=== PATIENT | male | born 1945 | race Caucasian/White ===

== ENCOUNTER 2019-06-20 08:00 | Outpatient (RCR) | payer SELFPAY | END 2019-09-29 16:05 | disposition home or self-care (01) | LOC: CHSCPRIII 08:00 | PROVIDERS: PCP Internal Medicine; Visit Provider Specialist | DX: Z95.1 Presence of aortocoronary bypass graft (principal) | CPT/HCPCS: 99199 ==

== ENCOUNTER 2021-01-30 08:48 | Emergency (ER) | payer MEDICARE, SELFPAY ==
--- NOTE | ~2021-01-30 | CT_ITS ---
EXAMINATION: CT abdomen pelvis w con EXAM DATE: 01/30/2021 10:22 INDICATION: Mid to low abdominal pain nausea and bloating fullness. TECHNIQUE: Spiral CT of the abdomen and pelvis was performed following intravenous injection of 100 m L Omnipaque 350. Axial, coronal and sagittal images of the abdomen and pelvis were reviewed. The do se-length product (DLP) for this examination was 488.98 mGy-cm. The exposure was tailored according to patient size (auto mA exposure control), and iterative reconstruction (ASIR) was used as additiona l dose reduction technique. Comparison is made to prior examination from 04/26/2019. FINDINGS: There is a 3.5 mm stone in the right ureterovesicular junction, with mild right hydroureter onephrosis and a delayed nephrogram. There is moderate right perinephric fat stranding. Several addit ional punctate right calyceal stones. There is a hypodensity in the liver dome measuring 1.8 cm consistent with a cyst. The spleen, pancre as, and adrenal glands are unremarkable. Small calcified cholelithiasis identified. Unremarkable bi liary system. The prostate is unremarkable. Small left inguinal fat-containing hernia. The bladder is unremarkable. There is no retroperitoneal or pelvic lymphadenopathy. There is moderate scatter ed arteriosclerotic disease. The appendix is normal. There is moderate sigmoid colonic diverticulosis. There is no adjacent infla mmatory change to suggest diverticulitis. The stomach and small bowel are unremarkable. There is ex pected amount of colonic stool. No free intraperitoneal gas. The heart is normal in size. There are no pericardial or pleural effusions. The lung bases are unremarkable. There are no osteoblastic or osteolytic lesions identified. IMPRESSION: 1. Right UVJ 3.5 mm stone, mild hydroureteronephrosis. 2. Punctate right nephrolithiasis. 3. Sigmoid diverticulosis. Reviewed, dictated and finalized at location A.
[2021-01-30 08:48] VITALS: BP 151/77; PULSE 71; RESP 16; TEMP 36.7; O2SAT 100
[2021-01-30] MEDS: MORPHINE SULFATE (*CRX) 4 MG/ML INJ IV PUSH (09:07)
--- NOTE | 2021-01-30 09:07 | ECG_ITS ---
Measurements Intervals [place] Rate: 72 P: 72 ID: 180 QRS: 51 QRSD: 102 T: 4 QT: 399 QTc: 439 Interpretive Statements SINUS RHYTHM DELAYED PRECORDIAL R/S TRANSITION INFERIOR INFARCT, AGE INDETERMINATE BASELINE ARTIFACT- II, III, AVR, AVF, V6 ABNORMAL ECG Electronically Signed On 01-30-2021 10:03:35 CDT by Aniceto Dinero D.O.
[2021-01-30] MEDS: ONDANSETRON INJ 4 MG/2 ML VIAL IV PUSH (09:13)
[2021-01-30] MEDS: SODIUM CHLORIDE 0.9% IV 1,000 ML 999 ML IV CONT (09:13)
[2021-01-30 09:17] LABS: Basophils Absolute Auto 0.03 K/mm3 (0.00-0.10); Basophils Percent Auto 0.3 % (0.0-1.0); Hematocrit 44.1 % (37.0-46.0); Hemoglobin 14.7 g/dL (12.4-15.3); Immature Granulocyte Absolute 0.03 K/mm3 (0.00-0.00); Immature Granulocyte Percent A 0.3 % (0.0-0.0); Lymphocytes Absolute Auto 0.96 K/mm3 (1.10-4.50); Mean Corpuscular HGB Conc 33.3 g/dL (32.0-36.0); Mean Corpuscular Hemoglobin 27.9 pg (27.0-31.0); Mean Corpuscular Volume 83.8 fL (78.0-102.0); Mean Platelet Volume 8.9 fl (8.7-11.0); Monocytes Absolute Auto 0.49 K/mm3 (0.10-0.90); Monocytes Percent Auto 5.1 % (2.0-11.0); Neutrophils Absolute Auto 8.1 K/mm3 (1.7-7.2); Neutrophils Percent Auto 84.3 % (50.0-70.0); Platelet Count Result 241 K/mm3 (150-420); Red Blood Count 5.26 M/mm3 (4.70-6.10); Red Cell Distribution Width 12.9 % (11.6-14.4); White Blood Count 9.6 K/mm3 (4.8-10.8)
[2021-01-30 09:43] LABS: Lactic Acid Reflex 3.9 mmol/L (0.4-2.0); Partial Thromboplastin Time 20.6 SEC (23.90-30.70); Prothrombin Time 10.6 Seconds (9.50-12.10)
[2021-01-30 09:46] LABS: SARS-CoV-2 Ag Negative (Negative)
[2021-01-30 09:48] LABS: Alanine Aminotransferase 32 U/L (16-63); Albumin Level 3.8 g/dL (3.4-5.0); Alkaline Phosphatase 66 U/L (46-116); Anion Gap 13 mmol/L (8-16); Aspartate Amino Transferase 21 U/L (15-37); Bilirubin,Total 0.8 mg/dL (0.00-1.00); Blood Urea Nitrogen 21 mg/dL (7-18); Calcium 9.3 mg/dL (8.5-10.1); Carbon Dioxide 23 mmol/L (21-32); Chloride 103 mmol/L (98-108); Estimated CRCL calculation 38 ml/min; Estimated Glomerular Filt Rate 54; Glucose 182 mg/dL (70-99); Lipase 192 U/L (73-393); Osmolality Calculated 296 mOsm/kg (285-295); Potassium 4.3 mmol/L (3.5-5.1); Sodium 139 mmol/L (136-145); Total Protein 7.2 g/dL (6.4-8.2); Troponin I 6.2 ng/L (0.00-60.4)
[2021-01-30 09:48] LABS: CRP < 0.2 mg/dL (0.0-0.9)
--- NOTE | 2021-01-30 10:44 | ED.ABDPAIN ---
HPI - Abdominal Pain General Chief Complaint: Abdominal Pain Stated Complaint: ABD PAIN Source: patient Mode of arrival: ambulatory History of Present Illness HPI narrative: this is a 76-year-old gentleman that presents with some abdominal pain that localizes into his right flank area the abdominal pain is causing some bloating, with no diarrhea or constipation no dysuria no hematuria no fever or chills has been having some nausea with no vomiting, the patient states that he has had abdominal discomfort for the last couple of days but intensified this morning. Currently no fever chills no chest pain no shortness of breath. MD elicited complaint: abdominal pain Pertinent past history: kidney stones Onset (ago): day(s) Pain Consistency: constant Location: diffuse Severity: severe Pain scale (0-10): 10 Quality: aching and fullness Radiation: R flank Migration to: R flank Exacerbating factors: nothing Relieving factors: nothing Related Data Home Medications Medication Instructions Recorded Confirmed Eliquis 5 mg PO BID 04/26/19 01/30/21 aspirin 81 mg PO DAILY 04/26/19 01/30/21 atorvastatin 40 mg PO DAILY 04/26/19 01/30/21 magnesium oxide 400 mg PO DAILY 04/26/19 01/30/21 metoprolol tartrate 25 mg PO BID 04/26/19 01/30/21 tamsulosin 0.4 mg PO DAILY 04/26/19 01/30/21 Allergies Allergy/AdvReac Type Severity Reaction Status Date / Time No Known Allergies Allergy Unverified 01/27/19 20:18 Review of Systems Review of Systems: All systems reviewed & are unremarkable except as noted in HPI and below PMFSH Past Medical History Medical History Cholecystitis, chronic Diverticulitis Kidney stone Surgical History Surgical History H/O colonoscopy Family History Family History Mother Family history of dementia Father Family history of heart disease in male family member before age 55 Other Family history of cardiovascular disease Hypertension Social History Social History Smoking status: Never smoker Second hand tobacco smoke exposure: No Alcohol intake: never Substance use: never Substance use type: does not use Gender identity (if verbalized by the patient): Male Spiritual care concerns: No Agree to blood products: Yes Exam Const: General: no acute distress and alert Orientation/consciousness: patient oriented x3 HENMT: Head: normal to inspection Eyes: Conjunctivae: conjunctivae normal Pupils: Equal, round and reactive pupils present EOM: EOMs intact bilaterally Direct Ophthalmoscopy: no photophobia Neck: Neck: normal visual inspection and no lymphadenopathy Chest: Chest palpation & inspection: normal inspection of the chest Cardio: Rate: regular rate Rhythm: regular rhythm GI: GI Palp: Yes Tenderness to palpation present (GI) Percussion: Yes normal to percussion : General: Yes CVA tenderness Urinary Catheter: Urinary Catheter: patent and draining Back/Spine/Pelvis: Back: CVA tenderness Skin: General skin exam: normal color Rashes: no rashes Neuro: General: patient oriented x3 Extrem: General: normal to inspection and no pedal edema Course Course Emergency Course: Reassessment of patient after receiving 4 morphine g of Tylenol and 30 IV Toradol patient's pain level has mildly improved patient also received IV fluids and Zofran. CT scan and labs reviewed with patient does show that he has a right UVJ 3.5mm stone nonobstructing. Advised discharge and follow-up with a urologist/ primary care physician if symptoms persist. Vital Signs Vital signs: Vital Signs Temperature 36.7 C 01/30/21 08:48 Pulse Rate 71 01/30/21 08:48 Respiratory Rate 16 01/30/21 08:48 Blood Pressure 151/77 H 01/30/21 08:48 Pulse Oximetry 100 01/30/21 08:4
[2021-01-30] MEDS: KETOROLAC 30 MG/ML VIAL (*BKC) IV PUSH (10:45)
[2021-01-30 10:48] VITALS: BP 133/74; PULSE 69; RESP 18; O2SAT 97
--- NOTE | 2021-01-30 11:42 | PC.NURSE ---
DONOVAN Warren during entirety of ER visit. Error in documentation, Dandy MAN signed into computer.
[2021-01-30 11:55] LABS: Reflex Lactic Acid Yes or No No Lactic Reflex
== END 2021-01-30 11:05 | disposition home or self-care (01) ==
PROVIDERS: Emergency Provider Emergency Medicine; PCP Internal Medicine
DX: N20.1 Calculus of ureter (principal); Z20.822 Contact with and (suspected) exposure to COVID-19
CPT/HCPCS: 36415; 74177; 80053; 83605; 83690; 84484; 85025; 85610; 85730; 86140; 87040; 87426; 93005; 96361; 96374; 96375; 99283; 99284; C9803; J0131; J1885; J2270; J2405; J7030; Q9967

== ENCOUNTER 2021-05-30 14:18 | Emergency (ER) | payer MEDICARE, SELFPAY ==
--- NOTE | ~2021-05-30 | CT_ITS ---
EXAMINATION: CT abdomen pelvis wo con DATE: 05/30/2021 15:15 INDICATION: Central abdominal pain. TECHNIQUE: Computed tomography (CT) of the abdomen and pelvis was performed without intravenous contr ast. Automated exposure control and iterative reconstruction technique were employed. The dose-length product was 521.86 mGy-cm. COMPARISON: CT abdomen and pelvis 01/30/2021 FINDINGS: The visualized portions of the lung bases demonstrate mild atelectasis. A calcified left khushboo ng nodule is consistent with old granulomatous disease. No pleural effusion. The heart size is normal . There are coronary artery calcifications. Calcifications of the aortic valve. No pericardial effusi on. There is a 2.0 cm cyst in the liver. There are gallstones in the gallbladder, which is normal in size. Calcifications in the spleen are consistent with old granulomatous disease. The pancreas, adren al glands, and left kidney are normal. There are four 1 mm stones in right kidney. There is a left in guinal hernia containing fat. There is diverticulosis of the colon without evidence of diverticulitis . There are no dilated loops of bowel. The appendix is normal. There are likely changes of right ingu inal hernia repair. There are no pathologically enlarged lymph nodes. There is no free intraperitonea l fluid. There is severe lumbar spondylosis. IMPRESSION: 1. Left inguinal hernia containing fat. 2. Cholelithiasis. No evidence of acute cholecystitis. Reviewed, dictated and finalized at location A. ORDER CLERK
[2021-05-30 14:32] VITALS: BP 153/91; PULSE 74; RESP 18; TEMP 35.6; O2SAT 94
--- NOTE | 2021-05-30 14:42 | ECG_ITS ---
Measurements Intervals [place] Rate: 72 P: 72 AK: 189 QRS: 19 QRSD: 96 T: 3 QT: 370 QTc: 405 Interpretive Statements SINUS RHYTHM DELAYED PRECORDIAL R/S TRANSITION INFERIOR INFARCT, AGE INDETERMINATE BASELINE ARTIFACT- I, II, III, AVR ABNORMAL ECG Electronically Signed On 05-30-2021 15:36:58 TRIPOLER by Aniceto Dinero D.O.
[2021-05-30 14:58] LABS: Basophils Absolute Auto 0.02 K/mm3 (0.00-0.10); Basophils Percent Auto 0.2 % (0.0-1.0); Hematocrit 50.4 % (37.0-46.0); Hemoglobin 15.9 g/dL (12.4-15.3); Immature Granulocyte Absolute 0.02 K/mm3 (0.00-0.00); Immature Granulocyte Percent A 0.2 % (0.0-0.0); Lymphocytes Absolute Auto 0.96 K/mm3 (1.10-4.50); Lymphocytes Percent Auto 10.8 % (18.0-42.0); Mean Corpuscular HGB Conc 31.5 g/dL (32.0-36.0); Mean Corpuscular Hemoglobin 26.8 pg (27.0-31.0); Mean Corpuscular Volume 84.8 fL (78.0-102.0); Mean Platelet Volume 8.9 fl (8.7-11.0); Monocytes Percent Auto 6.8 % (2.0-11.0); Neutrophils Absolute Auto 7.3 K/mm3 (1.7-7.2); Platelet Count Result 244 K/mm3 (150-420); Red Blood Count 5.94 M/mm3 (4.70-6.10); Red Cell Distribution Width 12.6 % (11.6-14.4); White Blood Count 8.9 K/mm3 (4.8-10.8)
[2021-05-30 15:13] LABS: Alanine Aminotransferase 108 U/L (16-63); Albumin Level 3.4 g/dL (3.4-5.0); Alkaline Phosphatase 157 U/L (46-116); Anion Gap 9 mmol/L (8-16); Aspartate Amino Transferase 129 U/L (15-37); Blood Urea Nitrogen 19 mg/dL (7-18); Carbon Dioxide 30 mmol/L (21-32); Chloride 102 mmol/L (98-108); Estimated CRCL calculation 41 ml/min; Estimated Glomerular Filt Rate 59; Glucose 125 mg/dL (70-99); Osmolality Calculated 295 mOsm/kg (285-295); Potassium 5.1 mmol/L (3.5-5.1); Sodium 141 mmol/L (136-145); Total Protein 6.9 g/dL (6.4-8.2); Troponin I 8.1 ng/L (0.00-60.4)
[2021-05-30 15:20] LABS: Add Urine Microscopic? NO; Appearance Urine Clear (Clear); Bilirubin Urine Negative (Negative); Blood Urine Negative (Negative); Color Urine Yellow (Yellow); Glucose Urine UA Negative (Negative); Ketones Urine Negative (Negative); Leukocyte Esterase Ur Negative LEU/UL (Negative); Nitrate Urine Negative (Negative); Protein Urine Negative (Negative); Urobilinogen Urine 0.2 mg/dL (0.2-1.0)
[2021-05-30 15:37] LABS: Lipase 2984 U/L (73-393)
[2021-05-30 15:45] VITALS: BP 142/79; PULSE 81; RESP 16; TEMP 36.6; O2SAT 97
[2021-05-30 18:04] LABS: Calcium 9.4 mg/dL (8.5-10.1)
--- NOTE | 2021-05-30 19:26 | ED.ABDPAIN ---
HPI - Abdominal Pain General Chief Complaint: Abdominal Pain Stated Complaint: pain in abdomen Source: patient and family Mode of arrival: ambulatory Limitations: no limitations History of Present Illness HPI narrative: Pt states that he had some abdominal pain for last several hours. He apparently has had pain like this before when he had a kidney stone. He has not had fevers chills nausea or other problems. THis is isolated pain to epigastrim. MD elicited complaint: abdominal pain Pertinent past history: none Onset (ago): hour(s) Pain Consistency: constant Location: epigastric Severity: mild Quality: sharp Migration to: no migration Exacerbating factors: nothing Relieving factors: nothing Associated symptoms: denies other symptoms Related Data Home Medications Medication Instructions Recorded Confirmed aspirin 81 mg PO DAILY 04/26/19 05/30/21 atorvastatin 40 mg PO DAILY 04/26/19 05/30/21 magnesium oxide 400 mg PO DAILY 04/26/19 05/30/21 metoprolol tartrate 25 mg PO BID 04/26/19 05/30/21 tamsulosin 0.4 mg PO DAILY 04/26/19 05/30/21 Allergies Allergy/AdvReac Type Severity Reaction Status Date / Time No Known Allergies Allergy Verified 05/30/21 14:36 Review of Systems Constitutional: Constitutional: Reports no additional constitutional complaints Eyes: Eyes: Reports no additional eye complaints ENT: Reports system reviewed and no additional complaints, except as documented Cardiovascular: Cardiovascular: Reports no additional cardiovascular complaints Respiratory: Respiratory: Reports no additional respiratory complaints Gastrointestinal: Gastrointestinal: Reports abdominal pain, Denies bloating, Denies constipation, Denies heartburn, Denies diarrhea, Denies nausea and Denies vomiting Genitourinary: Genitourinary: Reports no additional male genitourinary complaints Musculoskeletal: Musculoskeletal: Reports no additional musculoskeletal complaints Integumentary/Breasts: Skin/Breast: Reports system reviewed and no additional complaints, except as docu Neurologic: Reports system reviewed and no additional complaints, except as documented Psychiatric: Psychiatric: Reports no additional psychiatric complaints Endocrine: Endocrine: Reports no additional endocrine complaints Hematologic/Lymphatic: Hematologic/Lymphatic: Reports no additional hematologic/lymphatic complaints Allergic/Immunologic: Allergic/Immunologic: Reports no additional allergic/immunologic complaints PMFSH Past Medical History Medical History Cholecystitis, chronic Diverticulitis Kidney stone Surgical History Surgical History H/O colonoscopy Family History Family History Mother Family history of dementia Father Family history of heart disease in male family member before age 55 Other Family history of cardiovascular disease Hypertension Social History Social History Smoking status: Never smoker Second hand tobacco smoke exposure: No Alcohol intake: never Substance use: never Substance use type: does not use Gender identity (if verbalized by the patient): Male Spiritual care concerns: No Agree to blood products: Yes Exam Const: General: no acute distress and alert Orientation/consciousness: patient oriented x3 HENMT: Head: normal to inspection Eyes: Conjunctivae: conjunctivae normal Pupils: Equal, round and reactive pupils present Neck: Neck: normal visual inspection Chest: Chest palpation & inspection: normal inspection of the chest Resp: Effort & Inspection: normal respiratory effort Auscultation: clear to auscultation bilaterally Cardio: Rate: regular rate Rhythm: regular rhythm GI: GI Palp: Yes Soft to palpation, No Tenderness to palpation present
== END 2021-05-30 15:57 | disposition home or self-care (01) ==
PROVIDERS: Emergency Provider Emergency Medicine; PCP Internal Medicine
DX: R10.13 Epigastric pain (principal)
CPT/HCPCS: 36415; 74176; 80053; 81003; 83690; 84484; 85025; 93005; 99283; 99284

== ENCOUNTER 2021-05-30 17:26 | Inpatient (IN) | payer MEDICARE, SELFPAY ==
--- NOTE | ~2021-05-30 | XR_ITS ---
EXAMINATION: XR chest 2V EXAM DATE: 05/30/2021 17:57 INDICATION: Hypercalcemia. Open heart surgery x2yrs ago. TECHNIQUE: Frontal and lateral projections of the chest obtained and reviewed. Comparison is made to prior examination from 04/26/2019. FINDINGS: Sternotomy wires are present without findings to suggest sternal dehiscence. The lungs are clear. There are no pleural effusions. The cardiomediastinal silhouette is within normal limits. There is no pneumothorax suspected. The bones and soft tissues are unremarkable. IMPRESSION: No acute cardiopulmonary findings. Reviewed, dictated and finalized at location A. IC WORKS COMMISSIONER
[2021-05-30 17:00] VITALS: BP 158/81; PULSE 68; RESP 14; TEMP 36.7; O2SAT 100
[2021-05-30 17:29] VITALS: BMI 26.9
[2021-05-30 18:02] LABS: Thyroid Stimulating Hormone 1.04 uIU/mL (0.36-3.74)
[2021-05-30 19:23] VITALS: BMI 26.9
[2021-05-30 19:30] VITALS: PULSE 82
[2021-05-30 19:37] VITALS: BP 130/82; PULSE 62; RESP 14; TEMP 36.8; O2SAT 99
[2021-05-30 19:48] LABS: Alanine Aminotransferase 185 U/L (16-63); Albumin Level 3.4 g/dL (3.4-5.0); Alkaline Phosphatase 181 U/L (46-116); Anion Gap 6 mmol/L (8-16); Aspartate Amino Transferase 175 U/L (15-37); Bilirubin,Total 0.9 mg/dL (0.00-1.00); Blood Urea Nitrogen 17 mg/dL (7-18); Calcium 9.1 mg/dL (8.5-10.1); Carbon Dioxide 32 mmol/L (21-32); Chloride 102 mmol/L (98-108); Estimated CRCL calculation 38 ml/min; Estimated Glomerular Filt Rate 53; Glucose 151 mg/dL (70-99); Magnesium 2.3 mg/dL (1.8-2.4); Osmolality Calculated 294 mOsm/kg (285-295); Potassium 4.9 mmol/L (3.5-5.1); Sodium 140 mmol/L (136-145); Total Protein 6.9 g/dL (6.4-8.2)
[2021-05-30 19:51] LABS: Lipase 1941 U/L (73-393)
--- NOTE | 2021-05-30 20:37 | PM.SD2 ---
Same Day Admit/Disch: HPI History of Present Illness Chief complaint: hypercalcemia Narrative: Frank Nance is a 76 year old male who was admitted to the hospital for elevated Ca++ at >13.5. He also had minimal symptoms to match his elevated Lipase. Pt has a PMHx of Kidney Stone, Diverticulitis, Chronic Cholecystitis, and a Quintuplet CABG about 2 years ago. Pt presented with minimal abdominal pain, no chest pain, no SOB, no N/V, able to walk without assistance, EKG with NSR and evidence of age indeterminant infarct (past Quintuplet CABG), then abdominal pain resolved while rechecking blood work. Blood work rechecked as the Ca++ was >13.5 without any symptoms and no new EKG findings. I asked lab to recheck and his Ca++ was found to be normal. Then repeated his Lipase which remained the same. Then obtained new blood samples and re-ran his labs. New labs were basically the same with Ca++ remaining normal, slight increase in Cr, and Lipase decreased with Pt asymptomatic. Chest images report with no acute findings. Options given to Pt was stay in house with IV hydration and possible MRCP in the AM vs DC home and hydrate. He was informed about the bump in his Liver enzymes and Cr and that he likely had passed a gall stone which he admitted he had done in the past. Pt is a healthy 76 year old who appears to be in his 60s and has already made lifestyle changes since his Quintuplet CABG. Pt elected to return home and hydrate and to return should his pain return. He was instructed not to take Tylenol for pain but could trial NSAID for pain a couple time given the very slight bump in his Cr to 1.31. Pt admitted he needs to drink more water anyway. [facility] Past Medical History Medical History (Updated 05/30/21 @ 21:01 by JOAN Casas) BPH (benign prostatic hyperplasia) Cholecystitis, chronic Diverticulitis Kidney stone Myocardial infarct Surgical History Surgical History (Updated 05/30/21 @ 20:55 by JOAN Casas) H/O colonoscopy Hx of CABG Family History Family History Mother Family history of dementia Father Family history of heart disease in male family member before age 55 Other Family history of cardiovascular disease Hypertension Social History Social History Smoking status: Never smoker Second hand tobacco smoke exposure: No Alcohol intake: never Substance use: never Substance use type: does not use Gender identity (if verbalized by the patient): Male Spiritual care concerns: No Agree to blood products: Yes Same Day Admit/Disch: Med Pre-admit Medications Home Medications Medication Instructions Recorded Confirmed Type aspirin 81 mg PO DAILY 04/26/19 05/30/21 History atorvastatin 40 mg PO DAILY 04/26/19 05/30/21 History magnesium oxide 400 mg PO DAILY 04/26/19 05/30/21 History metoprolol tartrate 25 mg PO BID 04/26/19 05/30/21 History tamsulosin 0.4 mg PO DAILY 04/26/19 05/30/21 History Exam Const: General: cooperative, healthy appearing, comfortable, no acute distress, well developed, alert, awake and Physically active Nutritional Appearance: average body habitus and well nourished Orientation/consciousness: oriented to person, oriented to place and oriented to time Limitations: no limitations Resp: Effort & Inspection: normal respiratory effort Auscultation: clear to auscultation bilaterally Cardio: Rate: regular rate Heart sounds: S1 normal heart sound present and S2 normal heart sound present GI: GI Palp: Yes Soft to palpation, No Tenderness to palpation present (GI), No Guarding due to palpation present (GI), No Rigid due to palpation and Yes No hepatosplenomegaly present Auscultation: normal bowel sounds Skin: General skin exam: normal color and dry skin Neuro: General: oriented to person, oriented to place, oriented to time, tone normal, moves all extremitie
--- NOTE | 2021-05-30 21:42 | PC.NURSE ---
Patient alert and oriented x4. Ambulates without assist, gait steady. Denies SOB, pain, weakness. Labs obtained results seen by Hospitalist and MD. Patient to be discharged home. Nurse walked down to front lobby with patient, here to pick him up.
[2021-06-06 15:28] LABS: Parathyroid Hormone Related Pr 18 pg/mL (11-20)
== END 2021-05-30 21:40 | disposition home or self-care (01) | DRG 641 ==
PROVIDERS: Nurse Practitioner Family; Admitting Provider Emergency Medicine; PCP Internal Medicine; Visit Provider Emergency Medicine
DX: E83.52 Hypercalcemia (principal); R74.8 Abnormal levels of other serum enzymes; K81.1 Chronic cholecystitis; K57.30 Diverticulosis of large intestine without perforation or abscess without bleeding; N40.0 Benign prostatic hyperplasia without lower urinary tract symptoms; I25.2 Old myocardial infarction; Z95.1 Presence of aortocoronary bypass graft
CPT/HCPCS: 36415; 71046; 74176; 80053; 81003; 83519; 83690; 83735; 84443; 84484; 85025; 93005; 99283; 99284

== ENCOUNTER 2021-06-30 09:28 | Outpatient (CLI) | payer MEDICARE, SELFPAY ==
[2021-06-30 11:00] LABS: Alanine Aminotransferase 29 U/L (4-50); Albumin Level 4.1 g/dL (3.5-5.1); Alkaline Phosphatase 84 U/L (38-126); Amylase 82 U/L (30-110); Aspartate Amino Transferase 37 U/L (17-59); Lipase 149 U/L (23-300)
== END 2021-06-30 09:29 | disposition home or self-care (01) ==
LOC: ANHSURGERY 09:32
PROVIDERS: PCP Internal Medicine; Visit Provider Surgery
DX: Z01.818 Encounter for other preprocedural examination (principal); K80.10 Calculus of gallbladder with chronic cholecystitis without obstruction
CPT/HCPCS: 36415; 80076; 82150; 83690; 86850; 86900; 86901

== ENCOUNTER 2021-07-02 01:24 | Day surgery (SDC) | payer MEDICARE, SELFPAY ==
[2021-06-25 12:41] VITALS: BMI 27.0
--- NOTE | 2021-06-25 13:00 | PC.NURSE ---
Report to the Outpatient Waiting Room, entrance under the green pavilion located off [facility], at time _10:00AM on date ___07/02/21____. OR Time: ____12:00PM____. - You will be asked a series of questions to screen for COVID 19 for your protection. - A mask is required within the hospital. - No visitors are allowed at this time. Preoperative COVID Testing Requirements: No COVID Test needed if: (proof is required; if not received patient will have Rapid Test prior to entry) - Patient has received COVID Vaccine at least 14 days prior to procedure date or - Patient has positive COVID test result within last 90 days of surgery date. COVID Test needed if above criteria is not met If not COVID vaccinated a COVID test must be conducted within 72 hours of surgery and patient is asked to isolate self from time of testing until procedure. You will go to the [facility] for your COVID testing. The [facility] is located at the corner of [address] [facility]. You will only be called if COVID results are positive and your surgeon may reschedule your elective surgery date. Patients may have clear liquids (water, carbonated beverages, clear teas, apple juice) until 3 hours prior to surgery with a maximum of 20 ounces. - No food from midnight until time of surgery - Infants may have breast milk until 4 hours before surgery, infant formula 6 hours prior to surgery. - Children will be allowed to drink immediately following surgery. If applicable, please bring a bottle or sippy cup to assist with drinking. Juice, water, soda, and popsicles are readily available. For infants on formula, please bring formula the day of surgery. Pacifiers are allowed. Take the following medications with a SIP of water the morning of surgery: ___METOPROLOL Medications to discontinue per physician ALL VITAMINS/SUPPLEMENTS 3 DAYS PRE-OP Date to take last dose 2/5/22 HIBICLENS SHOWER MORNING OF SURGERY Please no make-up, nail north korean, hairspray, perfume, deodorant, or body powder the day of surgery. No jewelry (including any body piercings) or valuables the day of surgery, leave them at home. Please take a shower or bath the night before, or the morning of, surgery with an antibacterial soap. Wear comfortable, loose fitting clothing. Children are encouraged to wear pajamas. - Jewelry must be removed prior to entering the operating room. Rings and piercings that are not removed may be cut off. - The hospital will not accept responsibility for valuables. - Please leave all valuables, including medications, at home the day of surgery. If you are going home after surgery, a licensed driver medic must drive you home. - NO public transportation without another adult. - We recommend that an adult stay with you for 24 hours following discharge. - We also recommend that you do not drive, make important decision, drink alcoholic beverages, or take any drugs that were not prescribed by your health care provider for at least 24 hours after your discharge time. For Pediatric surgeries, we recommend two adults accompany the child home (only one inside the building at this time). Follow any additional instructions given to you from your surgeon. Telephone instructions given to __PATIENT and asked if any additional questions and then verbalized understanding. Patient advised to call surgeon office or pre surgery nurse liaison [phone] if any additional questions.
[2021-07-02] VITALS (10 sets, daily range): BP systolic 113–168; BP diastolic 65–91; PULSE 58–84; RESP 14–21; TEMP 36.5–36.7; O2SAT 97–100
--- NOTE | 2021-07-02 07:27 | P.PNAN_ITS ---
Anes - Initial Pre Proc Eval Procedure: Operation Date: 07/02/21 12:00 Proposed Procedures p Laparoscopic Cholecystectomy - Amber Nicole MD Date/Time: 07/02/21 07:27 Surgeon: Amber Nicole MD Pre Op Diagnosis: Chronic Cholecystitis with Stones Patient Data Age: 76 Gender: M Height: 1.68 m Weight: 76 kg Allergies Allergy/AdvReac Type Severity Reaction Status Date / Time No Known Allergies Allergy Verified 07/02/21 09:56 Home Medications Medication Instructions Recorded Confirmed Type aspirin 81 mg PO DAILY 04/26/19 07/02/21 History atorvastatin 40 mg PO DAILY 04/26/19 07/02/21 History metoprolol tartrate 25 mg PO BID 04/26/19 07/02/21 History tamsulosin 0.4 mg PO DAILY 04/26/19 07/02/21 History vit C,Q-Pi-jcbfz-lutein-zeaxan 1 tablet PO BID 06/25/21 07/02/21 History [PreserVision AREDS-2] Patient hx anesthesia problems: none Family hx anesthesia problems: none Results Review: All pre-operative results and documents have been reviewed as part of the pre-operative evaluation. [facility] Past Medical History Medical History (Updated 07/02/21 @ 07:27 by Dexter Llanos DO) BPH (benign prostatic hyperplasia) CAD (coronary artery disease) 2019 Cholecystitis, chronic Diverticulitis Hypertension Kidney stone Myocardial infarct Surgical History Surgical History (Updated 06/10/21 @ 09:39 by Marie Villanueva) H/O colonoscopy History of right inguinal hernia repair with mesh in 2011 Hx of CABG 2019 Family History Family History Mother Family history of dementia Father Family history of heart disease in male family member before age 55 Other Family history of cardiovascular disease Hypertension Social History Social History (Updated 06/10/21 @ 09:39 by Marie Villanueva) Smoking packs per day: 1 Smoking cigarettes per day: 20.0 Years smoked: 10 Smoking pack-years: 10.00 Smoking status: Former smoker Tobacco type: cigarettes Second hand tobacco smoke exposure: No Smoking end date: 11/21/69 Alcohol intake: never Substance use: never Substance use type: does not use Living arrangements: with family Additional living arrangements comments: Gender identity (if verbalized by the patient): Male Spiritual care concerns: No Agree to blood products: Yes Anes - Eval Final PreProcedure Day of Procedure 07/02/21 07:27 Patient weight: overweight Heart: regular rate and rhythm Lungs: clear to auscultation and normal air movement Airway: Mallampati scale class II Neurological: alert and oriented Last oral intake: >/= 8 hours ASA classification: III Emergent: no Anesthetic plan: proceed Anesthesia type and monitoring: general ETT and standard monitoring Results Review: All pre-operative results and documents have been reviewed as part of the pre-operative evaluation. Informed Consent: The patient's anesthetic plan and its attendant risks and benefits were discussed with the patient/family/POA. Questions were solicited and answers provided to the satisfaction of the patient/family/POA.
[2021-07-02] MEDS: LACTATED RINGERS 1,000 ML 30 ML IV CONT ×2 (10:25→12:27)
[2021-07-02] MEDS: ACETAMINOPHEN 500 MG TABLET 1000 MG PO (10:26)
[2021-07-02] MEDS: KETOROLAC 15 MG/ML VIAL (*BKC) IV PUSH (10:28)
--- NOTE | 2021-07-02 11:07 | WPDHPUPDATE1 ---
History and Physical Update Update Date/Time: 07/02/21 11:07 History and Physical has been reviewed, including an updated exam of the patient. There are NO changes in the patient's condition. Risks, benefits, and alternatives have been discussed and questions answered. Patient agrees to proceed with procedure.
[2021-07-02] MEDS: ceFAZolin 2 GM/D5W 50 ML 2 GM/50 ML BAG IVPB (11:45)
[2021-07-02] MEDS: BUPIVACAINE/EPINEPHRINE 0.5% 10 ML VIAL 30 ML INFILTRATE (12:11)
--- NOTE | 2021-07-02 12:30 | W.PM.PROC2 ---
Procedure Note - Detailed Date of Procedure 07/02/21 Pre-op Diagnosis Chronic Cholecystitis with Stones Post-op Diagnosis same Procedure Performed Laparoscopic cholecystectomy Surgeon Amber Nicole MD Anesthesia general Indications 76 y/o M c chronic cholecystitis, cholelithiasis Findings chronic cholecystitis Description of Procedure The patient was taken to the operating room placed in the supine position. After adequate induction of general anesthesia, the patient was prepped and draped in normal sterile fashion. A time-out was then performed to verify the patient's identity as well as the procedure being performed. I then made a 5 mm incision in the infraumbilical region. Through this, a Veress needle was placed into the peritoneal cavity and CO2 gas was then insufflated. After adequate pneumoperitoneum was achieved, the Veress needle was removed and a 5 mm optiview trocar was placed through this incision under direct visualization. I then placed the laparoscope through this trocar site and under direct visualization placed a further 12 mm subxiphoid port as well as 2 additional 5 mm ports in the right upper abdomen. The gallbladder was then identified and was noted to be moderately inflamed and distended. I was able to place a grasper at the dome of the gallbladder and this was retracted anterior and cephalad up over the liver. A 2nd retractor was then placed at the infundibulum and retracted laterally, this allowed visualization of the triangle of Calot. I then was able to visualize the cystic duct in its entirety from its proximal insertion into the gallbladder, to its distal junction with the common hepatic/common bile duct junction. At this point, I carefully skeletonized the proximal cystic duct with the [place] dissector. I then clipped and transected the proximal cystic duct. Next I visualized the cystic artery. Again the artery was skeletonized, clipped, and transected. I then used the Bovie cautery to take down the peritoneal attachments of the gallbladder off the liver bed. Once the gallbladder specimen was completely detached, an endo-pouch was placed through the 12 mm port site. I then placed the gallbladder specimen into the Endo pouch and removed the endo-pouch from the 12 mm port site. The specimen will now be sent to pathology for further review. I then copiously irrigated the right upper quadrant. Some mild oozing was noted in the liver bed and this was controlled with the bovie cautery. Hemostasis was noted in the liver bed, the clips were noted to be in good position on both the cystic duct stump and the cystic artery stump. No other pathology was noted in the right upper quadrant. I then moved the laparoscope to the subxiphoid port. No iatrogenic injury or other pathology was noted in the lower abdomen. I then closed the 12 mm trocar site under direct visualization using the Chet cone and 0 Vicryl suture. At this point, the abdomen was desufflated and all ports removed. All port sites were then closed with 4.O Monocryl subcuticular sutures. Dermabond was placed on each incision. The patient tolerated the procedure well, was extubated in the operating room postoperative and will be transferred to the recovery room in stable condition Estimated Blood Loss 10 Drains No Packing No Pathology yes Complications No immediate complications Condition stable Disposition PACU
[2021-07-02] MEDS: fentaNYL CITRATE INJ (*CRX) 100 MCG/2 ML VIAL 25 MCG IV PUSH ×8 (12:38→13:06)
[2021-07-02] MEDS: HYDROmorphone HCL INJ (*CRX) 1 MG/ML SYR 0.25 MG IV PUSH ×4 (13:17→13:46)
== END 2021-07-02 14:55 | disposition home or self-care (01) ==
PROVIDERS: PCP Internal Medicine; Visit Provider Surgery
PROC: 0FT44ZZ Resection of Gallbladder, Percutaneous Endoscopic Approach (ICD-10-PCS; CPT 47562; principal; 2021-07-02 12:00)
DX: K80.10 Calculus of gallbladder with chronic cholecystitis without obstruction (principal); I25.10 Atherosclerotic heart disease of native coronary artery without angina pectoris; I10 Essential (primary) hypertension; I25.2 Old myocardial infarction; N40.0 Benign prostatic hyperplasia without lower urinary tract symptoms; Z79.82 Long term (current) use of aspirin; Z95.1 Presence of aortocoronary bypass graft; Z87.891 Personal history of nicotine dependence
CPT/HCPCS: 47562; 88304; A9270; J0690; J1100; J1170; J1885; J2405; J2704; J2710; J3010; J7030; J7120

== ENCOUNTER 2022-10-07 00:17 | Day surgery (SDC) | payer MEDICARE, SELFPAY ==
[2022-09-23 13:13] VITALS: BMI 26.9
--- NOTE | 2022-10-06 16:15 | PM.HPGS ---
History of Present Illness History of Present Illness Consent: Risks, benefits, and alternatives have been discussed and questions answered. Patient agrees to proceed with procedure. Chief complaint: hx colon polyps, diverticulosis Narrative: Frank Nance is a 77 year old male referred for colon cancer screening. Five years ago he had 2 polyps removed, 1 of which was a tubular adenoma. He also has had recurrent episodes of diverticulitis. Review of Systems Review of Systems: All systems reviewed & are unremarkable except as noted in HPI and below PMFSH Past Medical History Medical History BPH (benign prostatic hyperplasia) CAD (coronary artery disease) 2019 Cholecystitis, chronic Diverticulitis Hypertension Kidney stone Myocardial infarct Surgical History Surgical History H/O colonoscopy History of right inguinal hernia repair with mesh in 2011 Hx laparoscopic cholecystectomy 07/02/21 Hx of CABG 2019 Family History Family History Mother Family history of dementia Father Family history of heart disease in male family member before age 55 Other Family history of cardiovascular disease Hypertension Social History Social History Smoking packs per day: 1 Smoking cigarettes per day: 20.0 Years smoked: 10 Smoking pack-years: 10.00 Smoking status: Former smoker Tobacco type: cigarettes Second hand tobacco smoke exposure: No Smoking end date: 11/21/69 Alcohol intake: current Alcohol use details: wine occasionally Substance use: never Substance use type: does not use Living arrangements: with family Additional living arrangements comments: Gender identity (if verbalized by the patient): Male Spiritual care concerns: No Agree to blood products: Yes Meds Home Medications and Allergies Home Medications Medication Instructions Recorded Confirmed Type aspirin 81 mg chewable tablet 81 mg PO DAILY 04/26/19 09/23/22 History atorvastatin 40 mg tablet 40 mg PO DAILY 04/26/19 09/23/22 History metoprolol tartrate 25 mg tablet 25 mg PO BID 04/26/19 09/23/22 History tamsulosin 0.4 mg capsule 0.4 mg PO DAILY 04/26/19 09/23/22 History vit C 250 mg-vit E 90 mg-zinc 40 1 tablet PO BID 06/25/21 09/23/22 History mg-copper 1 [id number] capsule (PreserVision AREDS-2) cholecalciferol (vitamin D3) 25 50 mcg PO DAILY 09/23/22 09/23/22 History mcg (1,000 unit) tablet (Vitamin D3) Allergies Allergy/AdvReac Type Severity Reaction Status Date / Time No Known Allergies Allergy Verified 10/07/22 10:03 Exam Const: General: alert Orientation/consciousness: patient oriented x3 Resp: Auscultation: clear to auscultation bilaterally Cardio: Rhythm: regular rhythm GI: GI Palp: Yes Soft to palpation and No Tenderness to palpation present (GI) Neuro: General: patient oriented x3 Assessment and Plan Assessment and plan (1) Colon cancer screening: Code(s): Z12.11 - Encounter for screening for malignant neoplasm of colon Status: Acute Assessment and Plan: Colonoscopy with possible biopsy or polypectomy or cautery or injection of substances.
[2022-10-07 10:05] VITALS: BP 138/71; PULSE 61; RESP 18; TEMP 36.1; O2SAT 100
[2022-10-07] MEDS: LACTATED RINGERS 1,000 ML 150 ML IV CONT (10:31)
--- NOTE | 2022-10-07 10:31 | WPDANESEPPF ---
Anes - Initial Pre Proc Eval Procedure: Operation Date: 10/07/22 11:15 Proposed Procedures p Colonoscopy - Chris Chilel MD Date/Time: 10/07/22 10:31 Surgeon: Chris Chilel MD Pre Op Diagnosis: hx colon polyps, diverticulosis Patient Data Age: 77 Gender: M Height: 1.68 m Weight: 73.6 kg Last Vital Signs Temp 97 F L 10/07/22 10:05 Pulse 61 10/07/22 10:05 Resp 18 10/07/22 10:05 BP 138/71 10/07/22 10:05 Pulse Ox 100 10/07/22 10:05 O2 Del Method Room Air 10/07/22 10:05 Allergies Allergy/AdvReac Type Severity Reaction Status Date / Time No Known Allergies Allergy Verified 10/07/22 10:03 Home Medications Medication Instructions Recorded Confirmed Type aspirin 81 mg chewable tablet 81 mg PO DAILY 04/26/19 09/23/22 History atorvastatin 40 mg tablet 40 mg PO DAILY 04/26/19 09/23/22 History metoprolol tartrate 25 mg tablet 25 mg PO BID 04/26/19 09/23/22 History tamsulosin 0.4 mg capsule 0.4 mg PO DAILY 04/26/19 09/23/22 History vit C 250 mg-vit E 90 mg-zinc 40 1 tablet PO BID 06/25/21 09/23/22 History mg-copper 1 [id number] capsule (PreserVision AREDS-2) cholecalciferol (vitamin D3) 25 50 mcg PO DAILY 09/23/22 09/23/22 History mcg (1,000 unit) tablet (Vitamin D3) Patient hx anesthesia problems: none Family hx anesthesia problems: none Results Review: All pre-operative results and documents have been reviewed as part of the pre-operative evaluation. [facility] Past Medical History Medical History BPH (benign prostatic hyperplasia) CAD (coronary artery disease) 2019 Cholecystitis, chronic Diverticulitis Hypertension Kidney stone Myocardial infarct Surgical History Surgical History H/O colonoscopy History of right inguinal hernia repair with mesh in 2011 Hx laparoscopic cholecystectomy 07/02/21 Hx of CABG 2019 Family History Family History Mother Family history of dementia Father Family history of heart disease in male family member before age 55 Other Family history of cardiovascular disease Hypertension Social History Social History Smoking packs per day: 1 Smoking cigarettes per day: 20.0 Years smoked: 10 Smoking pack-years: 10.00 Smoking status: Former smoker Tobacco type: cigarettes Second hand tobacco smoke exposure: No Smoking end date: 11/21/69 Alcohol intake: current Alcohol use details: wine occasionally Substance use: never Substance use type: does not use Living arrangements: with family Additional living arrangements comments: Gender identity (if verbalized by the patient): Male Spiritual care concerns: No Agree to blood products: Yes Anes - Eval Final PreProcedure Day of Procedure 10/07/22 10:31 Patient weight: normal Heart: regular rate and rhythm Lungs: clear to auscultation Airway: Mallampati scale class II Neurological: alert and oriented Last oral intake: >/= 8 hours ASA classification: III Emergent: no Anesthetic plan: proceed Anesthesia type and monitoring: general GIVS and standard monitoring Results Review: All pre-operative results and documents have been reviewed as part of the pre-operative evaluation. Informed Consent: The patient's anesthetic plan and its attendant risks and benefits were discussed with the patient/family/POA. Questions were solicited and answers provided to the satisfaction of the patient/family/POA.
--- NOTE | 2022-10-07 10:36 | WPDANESEPPF ---
Anes - Initial Pre Proc Eval Procedure: Operation Date: 10/07/22 11:15 Proposed Procedures p Colonoscopy - Chris Chilel MD Date/Time: 10/07/22 10:36 Surgeon: Chris Chilel MD Pre Op Diagnosis: hx colon polyps, diverticulosis Patient Data Age: 77 Gender: M Height: 1.68 m Weight: 73.6 kg Last Vital Signs Temp 97 F L 10/07/22 10:05 Pulse 61 10/07/22 10:05 Resp 18 10/07/22 10:05 BP 138/71 10/07/22 10:05 Pulse Ox 100 10/07/22 10:05 O2 Del Method Room Air 10/07/22 10:05 Allergies Allergy/AdvReac Type Severity Reaction Status Date / Time No Known Allergies Allergy Verified 10/07/22 10:03 Home Medications Medication Instructions Recorded Confirmed Type aspirin 81 mg chewable tablet 81 mg PO DAILY 04/26/19 09/23/22 History atorvastatin 40 mg tablet 40 mg PO DAILY 04/26/19 09/23/22 History metoprolol tartrate 25 mg tablet 25 mg PO BID 04/26/19 09/23/22 History tamsulosin 0.4 mg capsule 0.4 mg PO DAILY 04/26/19 09/23/22 History vit C 250 mg-vit E 90 mg-zinc 40 1 tablet PO BID 06/25/21 09/23/22 History mg-copper 1 [id number] capsule (PreserVision AREDS-2) cholecalciferol (vitamin D3) 25 50 mcg PO DAILY 09/23/22 09/23/22 History mcg (1,000 unit) tablet (Vitamin D3) Patient hx anesthesia problems: none Family hx anesthesia problems: none Results Review: All pre-operative results and documents have been reviewed as part of the pre-operative evaluation. [facility] Past Medical History Medical History BPH (benign prostatic hyperplasia) CAD (coronary artery disease) 2019 Cholecystitis, chronic Diverticulitis Hypertension Kidney stone Myocardial infarct Surgical History Surgical History H/O colonoscopy History of right inguinal hernia repair with mesh in 2011 Hx laparoscopic cholecystectomy 07/02/21 Hx of CABG 2019 Family History Family History Mother Family history of dementia Father Family history of heart disease in male family member before age 55 Other Family history of cardiovascular disease Hypertension Social History Social History Smoking packs per day: 1 Smoking cigarettes per day: 20.0 Years smoked: 10 Smoking pack-years: 10.00 Smoking status: Former smoker Tobacco type: cigarettes Second hand tobacco smoke exposure: No Smoking end date: 11/21/69 Alcohol intake: current Alcohol use details: wine occasionally Substance use: never Substance use type: does not use Living arrangements: with family Additional living arrangements comments: Gender identity (if verbalized by the patient): Male Spiritual care concerns: No Agree to blood products: Yes Anes - Eval Final PreProcedure Day of Procedure 10/07/22 10:36 Patient weight: normal Heart: regular rate and rhythm Lungs: clear to auscultation Airway: Mallampati scale class II Neurological: alert and oriented Last oral intake: >/= 8 hours ASA classification: III Emergent: no Anesthetic plan: proceed Anesthesia type and monitoring: general GIVS and standard monitoring Results Review: All pre-operative results and documents have been reviewed as part of the pre-operative evaluation. Informed Consent: The patient's anesthetic plan and its attendant risks and benefits were discussed with the patient/family/POA. Questions were solicited and answers provided to the satisfaction of the patient/family/POA.
[2022-10-07] MEDS: SIMETHICONE ORAL SUSPENSION 20 MG/0.3 ML 30 ML BOTTLE 0.6 ML IRRIGATION (11:01)
[2022-10-07 11:08] VITALS: BP 85/46; PULSE 62; RESP 17; O2SAT 97
[2022-10-07 11:18] VITALS: BP 90/45; PULSE 56; RESP 15; O2SAT 100
[2022-10-07 11:28] VITALS: BP 112/62; PULSE 60; RESP 16; O2SAT 100
== END 2022-10-07 11:37 | disposition home or self-care (01) ==
PROVIDERS: PCP Internal Medicine; Visit Provider Internal Medicine Gastroenterology
PROC: 0DJD8ZZ Inspection of Lower Intestinal Tract, Via Natural or Artificial Opening Endoscopic (ICD-10-PCS; CPT 45378; principal; 2022-10-07 11:15)
DX: Z12.11 Encounter for screening for malignant neoplasm of colon (principal); D12.4 Benign neoplasm of descending colon; K57.30 Diverticulosis of large intestine without perforation or abscess without bleeding; I25.10 Atherosclerotic heart disease of native coronary artery without angina pectoris; I25.2 Old myocardial infarction; I10 Essential (primary) hypertension; N40.0 Benign prostatic hyperplasia without lower urinary tract symptoms; Z95.1 Presence of aortocoronary bypass graft; Z87.442 Personal history of urinary calculi; Z87.891 Personal history of nicotine dependence; Z79.82 Long term (current) use of aspirin
CPT/HCPCS: 45385; 88305; J2704; J7120

== ENCOUNTER 2024-01-03 11:35 | Outpatient (CLI) | payer MEDICARE, SELFPAY ==
[2024-01-03 12:56] LABS: SARS-CoV-2 RNA PCR Positive (Negative)
== END 2024-01-03 11:36 | disposition home or self-care (01) ==
LOC: CHSLAB 11:39
PROVIDERS: PCP Internal Medicine; Visit Provider Internal Medicine
DX: U07.1 COVID-19 (principal); J06.9 Acute upper respiratory infection, unspecified
CPT/HCPCS: 87635